=== PATIENT | female | born 2000 | race African-American/Black ===

== ENCOUNTER 2019-01-23 03:18 | Inpatient (IN) ==
[2019-01-23] MEDS ORDERED: LR 1,000 ML IV SCH ×2 (04:45→07:00)
[2019-01-23 04:59] LABS: URINE SOURCE VOIDED
[2019-01-23 05:20] LABS: BILIRUBIN URINE NEGATIVE (NEGATIVE); BLOOD URINE NEGATIVE (NEGATIVE); GLUCOSE URINE NEGATIVE (NEGATIVE); KETONE URINE NEGATIVE (NEGATIVE); LEUKOCYTES URINE 2+ (NEGATIVE); NITRITE URINE NEGATIVE (NEGATIVE); PH URINE 6.5; PROTEIN URINE NEGATIVE (NEGATIVE); SP GRAVITY URINE 1.005; UR AMPHETAMINES QUAL NONE DETECTED (NONE DETECT); UR BARBITUATES QUAL NONE DETECTED (NONE DETECT); UR BENZODIAZEPIN QUAL NONE DETECTED (NONE DETECT); UR CANNABINOIDS QUAL NONE DETECTED (NONE DETECT); UR COCAINE QUAL NONE DETECTED (NONE DETECT); UR METHADONE QUAL NONE DETECTED (NONE DETECT); UR METHAMPHETAMINE QUAL NONE DETECTED (NONE DETECT); UR OPIATES QUAL NONE DETECTED (NONE DETECT); UR OXYCODONE QUAL NONE DETECTED (NONE DETECT); UR PCP QUAL NONE DETECTED (NONE DETECT); UR PROPOXYPHENE QUAL NONE DETECTED (NONE DETECT); UR TCA QUAL NONE DETECTED (NONE DETECT); UROBILINOGEN URINE 1 mg/dL
[2019-01-23 05:21] LABS: BASO# 0.04 X1000 (0.0-0.2); BASO% 0.3 % (0.0-0.8); CLARITY CLEAR (CLEAR); COLOR YELLOW; EOS# 0.14 X1000 (0.0-0.7); EOS% 0.9 % (0.0-10.0); HEMATOCRIT 28.2 % (37.0-47.0); IMM GRAN# 0.09 X1000 (0.0-0.04); IMM GRAN% 0.6 % (0.0-0.5); LYMPH# 2.24 X1000 (1.2-3.4); LYMPH% 14.9 % (20.5-51.1); MCH 17.9 PG (27-31); MCHC 28.4 g/dL (33-37); MCV 63.1 FL (81-99); MONO# 1.17 X1000 (0.11-0.59); MONO% 7.8 % (1.7-9.3); MPV 10.4 FL (7.4-10.4); NEUT# 11.34 X1000 (1.4-6.5); NEUT% 75.5 % (42.2-75.2); PLT 330 X1000 (130-400); RBC 4.47 XMIL (4.2-5.4); RDW 19.9 % (11.5-14.5); WBC 15.02 X1000 (4.8-10.8)
[2019-01-23 05:47] LABS: RPR NON-REACTIVE (NONREACTIVE)
[2019-01-23 05:50] LABS: RAPID HIV PRESUMPTIVE NEGATIVE
[2019-01-23 06:02] LABS: SEGS 82 % (42-75)
[2019-01-23 06:03] LABS: ANISOCYTOSIS 1+; HYPOCHROM 1+; LARGE PLATELETS 1+; LYMPHS 15 % (21-51); MICROCYTOSIS 2+; MONO 3 % (1-9)
[2019-01-23] MEDS ORDERED: FENTANYL-BUPIV-NS 2 MCG-0.1% 250 ML EPIDURAL PRN (06:26)
[2019-01-23] MEDS ORDERED: MARCAINE 0.25% PF INJ ONE (06:30)
[2019-01-23] MEDS ORDERED: AMPICILLIN 2 GM/NS 2 GM/100 ML IVPB IV ONE (06:57)
[2019-01-23] MEDS ORDERED: STADOL IV PRN (06:57)
[2019-01-23] MEDS ORDERED: LR 500 ML IV ONE (06:57)
[2019-01-23] MEDS ORDERED: KEFZOL 1 GM/D5W 1 GM/50 ML IVPB IV PRN (06:57)
[2019-01-23] MEDS ORDERED: REGLAN PO ONE (06:57)
[2019-01-23] MEDS ORDERED: PEPCID IV PRN (06:57)
[2019-01-23] MEDS ORDERED: PEPCID PO PRN (06:57)
[2019-01-23] MEDS ORDERED: ZOFRAN IV PRN (06:57)
[2019-01-23] MEDS ORDERED: PEPCID PO ONE (06:57)
[2019-01-23] MEDS ORDERED: TYLENOL PO PRN (06:57)
[2019-01-23] MEDS ORDERED: SODIUM CHLORIDE 0.9% INJ SCH (07:00)
[2019-01-23] MEDS ORDERED: PITOCIN 30 UNITS/NS 30 UNIT/500 ML IV.SOLN IV SCH (07:00)
--- NOTE | 2019-01-23 07:45 | HISTORY AND PHYSICAL ---
HISTORY OF PRESENT ILLNESS: The patient is a 18-year-old G2, P1, 0-0-1 at unknown gestational age, who presents to Labor and Delivery in active labor. The patient reports receiving care in [place], however, patient unable to report OB physician or hospital where she received care. Reports good movement. Admits to contractions. Denies leakage of fluid or vaginal bleeding. Denies any complications with current or previous . PAST MEDICAL HISTORY: Anemia. PAST SURGICAL HISTORY: None. MEDICATIONS: vitamins. 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 Menarche at age 11. OBSTETRICAL HISTORY: G2, P1, 0-0-1. One full-term vaginal delivery. No complications. ALLERGIES: No known drug allergies. FAMILY HISTORY: Noncontributory. SOCIAL HISTORY: Denies tobacco, alcohol, or drug use. PHYSICAL EXAMINATION: VITAL SIGNS: Temperature 97.8 degrees, pulse rate 100, respiration rate 18, blood pressure 124/80, and O2 saturation is 100% on room air. Weight 128 pounds, height 5 feet 2 inches, and BMI 23.4 kg/m2. GENERAL: No acute distress. Alert, awake, and oriented x3. CARDIOVASCULAR: Regular rate and rhythm. RESPIRATORY: Clear to auscultation. ABDOMEN: Gravid. Nontender to palpation. EXTREMITIES: No calf tenderness. Electronic monitoring category 1 tracing. Tocometer every 5 minutes. Sterile vaginal exam. 4 cm dilated, 70% effaced, and -2 station. LABORATORIES: WBCs 15.02, hemoglobin 8, hematocrit 28.2, and platelets 330,000. Urine drug screen negative. RPR nonreactive. HIV negative. Rubella pending. ASSESSMENT: Ms. Bartlett is a 18-year-old G2, P1, 0-0-1 at unknown gestational age, presumed term who presents in active labor. PLAN: 1. Admit to Labor and Delivery. 2. Obtain ultrasound for dating. 3. Continuous monitoring. 4. IV pain medications or epidural p.r.n. 5. Estimated weight 6-1/2 pounds. 6. Anticipate spontaneous vaginal delivery. [facility]
[2019-01-23] MEDS ORDERED: MINERAL OIL TOP PRN (07:46)
[2019-01-23] MEDS ORDERED: XYLOCAINE-MPF 1% INJ PRN (07:49)
[2019-01-23] MEDS ORDERED: AMPICILLIN 1 GM/NS 1 GM/50 ML IVPB IV SCH (10:58)
--- NOTE | 2019-01-23 11:58 | OB/GYN PROGRESS NOTE ---
Progress Note OB - . Patient Problems: Current Active Problems Problem Status Onset Intrauterine Acute OB Progress Note: Vital Signs - 24 hr 01/23/19 03:40 01/23/19 09:07 Temperature 97.8 F 96.9 F L Pulse Rate 100 H 95 H Respiratory Rate 18 16 Blood Pressure 124/80 104/51 O2 Sat by Pulse Oximetry 100 100 Laboratory Results - last 24 hr 01/23/19 01/23/19 01/23/19 04:26 04:26 04:26 WBC RBC Hgb Hct MCV MCH MCHC RDW Std Deviation Plt Count MPV Immature Gran % (Auto) Neut % (Auto) Lymph % (Auto) [place] % (Auto) Eos % (Auto) Baso % (Auto) Immature Gran # (Auto) Neut # (Auto) Lymph # (Auto) [place] # (Auto) Eos # (Auto) Baso # (Auto) Segmented Neutrophils Lymphocytes Monocytes Hypochromia Large Platelets Anisocytosis Microcytosis Glucose 79 Urine Source VOIDED Urine Color YELLOW Urine Clarity CLEAR Urine pH 6.5 Ur Specific [place] 1.005 Urine Protein NEGATIVE Urine Ketones NEGATIVE Urine Blood NEGATIVE Urine Nitrite NEGATIVE Urine Bilirubin NEGATIVE Urine Urobilinogen 1 Urine WBC 2+ A Urine Glucose NEGATIVE Urine Opiates Screen NONE DETECTED Ur Oxycodone Screen NONE DETECTED Urine Methadone Screen NONE DETECTED U Propoxyphene Qual NONE DETECTED Ur Barbituates Screen NONE DETECTED Ur Tricyclics Screen NONE DETECTED Ur Phencyclidine Scrn NONE DETECTED Ur Amphetamines Screen NONE DETECTED U Methamphetamines Scrn NONE DETECTED U Benzodiazepines Scrn NONE DETECTED Urine Cocaine Screen NONE DETECTED U Cannabinoids Screen NONE DETECTED RPR HIV 1&2 Antibody Rapid Blood Type Antibody Screen 01/23/19 01/23/19 01/23/19 04:26 04:26 04:26 WBC 15.02 H RBC 4.47 Hgb 8.0 L Hct 28.2 L MCV 63.1 L MCH 17.9 L MCHC 28.4 L RDW Std Deviation 19.9 H Plt Count 330 MPV 10.4 Immature Gran % (Auto) 0.6 H Neut % (Auto) 75.5 H Lymph % (Auto) 14.9 L [place] % (Auto) 7.8 Eos % (Auto) 0.9 Baso % (Auto) 0.3 Immature Gran # (Auto) 0.09 H Neut # (Auto) 11.34 H Lymph # (Auto) 2.24 [place] # (Auto) 1.17 H Eos # (Auto) 0.14 Baso # (Auto) 0.04 Segmented Neutrophils 82 H Lymphocytes 15 L Monocytes 3 Hypochromia 1+ Large Platelets 1+ Anisocytosis 1+ Microcytosis 2+ Glucose Urine Source Urine Color Urine Clarity Urine pH Ur Specific [place] Urine Protein Urine Ketones Urine Blood Urine Nitrite Urine Bilirubin Urine Urobilinogen Urine WBC Urine Glucose Urine Opiates Screen Ur Oxycodone Screen Urine Methadone Screen U Propoxyphene Qual Ur Barbituates Screen Ur Tricyclics Screen Ur Phencyclidine Scrn Ur Amphetamines Screen U Methamphetamines Scrn U Benzodiazepines Scrn Urine Cocaine Screen U Cannabinoids Screen RPR NON-REACTIVE HIV 1&2 Antibody Rapid PRESUMPTIVE NEGATIVE Blood Type AB POSITIVE Antibody Screen NEGATIVE of a living female infant over an intact perineum. Placenta delivered spontaneous intact. Epidural Third degree perineal laceration repaired in layers with 2-0 and 3-0 chromic. Rectum is intact. EML 350ml 9-10 Wt: 6lb 13 oz Pt tolerated procedure well.
[2019-01-23] MEDS ORDERED: PITOCIN 20 UNITS/NS 20 UNITS/1,000 ML IV.SOLN ONE (12:46)
[2019-01-23] MEDS ORDERED: PITOCIN 20 UNITS/NS 20 UNITS/1,000 ML IV.SOLN IV SCH (13:00)
[2019-01-23] MEDS ORDERED: ATARAX PO PRN (15:46)
[2019-01-23] MEDS ORDERED: AMBIEN PO PRN (15:46)
[2019-01-23] MEDS ORDERED: MOTRIN PO PRN (15:46)
[2019-01-23] MEDS ORDERED: M-M-R II VACCINE SUBQ ONE (15:46)
[2019-01-23] MEDS ORDERED: BOOSTRIX VACCINE IM ONE (15:46)
[2019-01-23] MEDS ORDERED: BENADRYL PO PRN (15:46)
[2019-01-23] MEDS ORDERED: HYDROXYZINE IM PRN (15:46)
[2019-01-23] MEDS ORDERED: CYTOTEC PO PRN (15:46)
[2019-01-23] MEDS ORDERED: NORCO-5 PO PRN (15:46)
[2019-01-23] MEDS ORDERED: BENADRYL IV PRN (15:46)
[2019-01-23] MEDS ORDERED: PERI MEDS (DERMOPLAST/NUPERCAINAL/TUCKS) MISC PRN (15:46)
[2019-01-23 18:47] LABS: HIV ANTIBODY SCREEN SEE COMMENTS
[2019-01-23 19:10] LABS: RUBELLA SCREEN NON IMMUNE (IMMUNE)
[2019-01-23] MEDS: PERICOLACE PO SCH (21:04)
[2019-01-24 08:41] LABS: BASO# 0.06 X1000 (0.0-0.2); BASO% 0.4 % (0.0-0.8); EOS# 0.12 X1000 (0.0-0.7); EOS% 0.7 % (0.0-10.0); HEMATOCRIT 23.2 % (37.0-47.0); HEMOGLOBIN 6.6 g/dL (12.0-16.0); IMM GRAN# 0.06 X1000 (0.0-0.04); IMM GRAN% 0.4 % (0.0-0.5); LYMPH# 1.63 X1000 (1.2-3.4); LYMPH% 9.6 % (20.5-51.1); MCH 18.3 PG (27-31); MCHC 28.4 g/dL (33-37); MCV 64.3 FL (81-99); MONO# 1.09 X1000 (0.11-0.59); MONO% 6.4 % (1.7-9.3); MPV 9.8 FL (7.4-10.4); NEUT# 14.02 X1000 (1.4-6.5); NEUT% 82.5 % (42.2-75.2); PLT 263 X1000 (130-400); RBC 3.61 XMIL (4.2-5.4); RDW 19.5 % (11.5-14.5); WBC 16.98 X1000 (4.8-10.8)
[2019-01-24] MEDS: FERROUS SULFATE PO SCH (08:46)
[2019-01-24 08:50] LABS: BANDS 5 % (0-1); LYMPHS 6 % (21-51); MONO 4 % (1-9); SEGS 85 % (42-75)
[2019-01-24 08:51] LABS: ANISOCYTOSIS 1+; HYPOCHROM OCCASIONAL
[2019-01-24 08:52] LABS: MICROCYTOSIS 1+; POIKILOCYTOSIS OCCASIONAL; POLYCHROM 1+
[2019-01-24 08:53] LABS: LARGE PLATELETS OCCASIONAL; OVALOCYTES OCCASIONAL; TARGET CELLS OCCASIONAL
[2019-01-24 09:46] LABS: HEPATITIS B SURFACE ANTIGEN SEE COMMENTS
[2019-01-24] MEDS: PERICOLACE PO SCH (21:05)
[2019-01-25 06:38] LABS: BASO# 0.05 X1000 (0.0-0.2); BASO% 0.3 % (0.0-0.8); HEMATOCRIT 23.4 % (37.0-47.0); HEMOGLOBIN 6.6 g/dL (12.0-16.0); IMM GRAN# 0.18 X1000 (0.0-0.04); IMM GRAN% 1.2 % (0.0-0.5); LYMPH# 2.08 X1000 (1.2-3.4); LYMPH% 13.9 % (20.5-51.1); MCH 18.2 PG (27-31); MCHC 28.2 g/dL (33-37); MCV 64.6 FL (81-99); MONO% 7.4 % (1.7-9.3); NEUT# 11.22 X1000 (1.4-6.5); NEUT% 75.2 % (42.2-75.2); PLT 295 X1000 (130-400); RBC 3.62 XMIL (4.2-5.4); RDW 19.5 % (11.5-14.5); WBC 14.93 X1000 (4.8-10.8)
[2019-01-25] MEDS ORDERED: ZITHROMAX PO ONE ×2 (07:35→10:30)
[2019-01-25] MEDS ORDERED: M-M-R II VACCINE SUBQ ONE (07:36)
[2019-01-25] MEDS ORDERED: DEPO-PROVERA IM ONE (07:44)
--- NOTE | 2019-01-25 07:44 | OB/GYN PROGRESS NOTE ---
Progress Note OB - . Patient Problems: Current Active Problems Problem Status Onset Intrauterine Acute OB Progress Note: Vital Signs - 24 hr 01/24/19 07:48 01/24/19 16:34 01/24/19 21:05 Temperature 97 F L 97.1 F L 97.8 F Pulse Rate 89 87 104 H Respiratory Rate 20 16 18 Blood Pressure 117/72 110/55 114/55 O2 Sat by Pulse Oximetry 100 100 01/25/19 06:00 Temperature 96.6 F L Pulse Rate 74 Respiratory Rate 18 Blood Pressure 119/76 O2 Sat by Pulse Oximetry 100 Laboratory Results - last 24 hr 01/23/19 01/23/19 01/24/19 04:26 04:26 08:20 WBC 16.98 H RBC 3.61 L Hgb 6.6 L D Hct 23.2 L MCV 64.3 L MCH 18.3 L MCHC 28.4 L RDW Std Deviation 19.5 H Plt Count 263 MPV 9.8 Immature Gran % (Auto) 0.4 Neut % (Auto) 82.5 H Lymph % (Auto) 9.6 L [place] % (Auto) 6.4 Eos % (Auto) 0.7 Baso % (Auto) 0.4 Immature Gran # (Auto) 0.06 H Neut # (Auto) 14.02 H Lymph # (Auto) 1.63 [place] # (Auto) 1.09 H Eos # (Auto) 0.12 Baso # (Auto) 0.06 Segmented Neutrophils 85 H Band Neutrophils 5 H Lymphocytes 6 L Monocytes 4 Hypochromia OCCASIONAL Large Platelets OCCASIONAL Polychromasia 1+ Poikilocytosis OCCASIONAL Anisocytosis 1+ Microcytosis 1+ Target Cells OCCASIONAL Ovalocytes OCCASIONAL Ur Chlamydia/GC DNA SEE COMMENTS Hep Bs Antigen SEE COMMENTS 01/25/19 06:21 WBC 14.93 H RBC 3.62 L Hgb 6.6 L Hct 23.4 L MCV 64.6 L MCH 18.2 L MCHC 28.2 L RDW Std Deviation 19.5 H Plt Count 295 MPV 10.0 Immature Gran % (Auto) 1.2 H Neut % (Auto) 75.2 Lymph % (Auto) 13.9 L [place] % (Auto) 7.4 Eos % (Auto) 2.0 Baso % (Auto) 0.3 Immature Gran # (Auto) 0.18 H Neut # (Auto) 11.22 H Lymph # (Auto) 2.08 [place] # (Auto) 1.10 H Eos # (Auto) 0.30 Baso # (Auto) 0.05 Segmented Neutrophils Not Reportable Band Neutrophils Lymphocytes Monocytes Hypochromia Large Platelets Polychromasia Poikilocytosis Anisocytosis Microcytosis Target Cells Ovalocytes Ur Chlamydia/GC DNA Hep Bs Antigen 18 yo PPD#2 s/p with no care, RNI, Chlamydia positive, anemia Patient seen and examined. No complaints this AM, pain controlled. Hgb this AM was 6.6, unchanged from yesterday. She denies any dizziness/lightheaded with ambulation. She notes minimal lochia. She is voiding without difficulty. Discussed positive chlamydia testing this AM. Will treat patient with Azithromycin and recommended partner treatment through the health department. Advised to avoid intercourse x 6 weeks. Nursery notified. She desires depo- provera prior to discharge for PP contraception. Encouraged patient to follow-up with us in clinic. Physical Exam-General - PHYSICAL EXAM-ADULT Initial Vital Signs Reviewed: Yes - CONSTITUTIONAL General Appearance: appears well, alert, no apparent distress - EYES Eyes: PERRL/EOMI - HEAD, EARS, NOSE, MOUTH & THROAT HENMT: normocephalic/atraumatic - RESPIRATORY Respiratory: lungs clear, normal breath sounds, no respiratory distress - CARDIOVASCULAR Cardiovascular: normal peripheral pulses, regular rate, rhythm - GASTROINTESTINAL (ABDOMEN) Abdominal Exam: normal bowel sounds, non tender, soft (fundus firm, below umbilicus) - MUSCULOSKELETAL Extremity: normal range of motion, non-tender - PSYCHIATRIC Psych/Mental Status: other (flat affect) Assessment/Plan - Assessment/Plan Assessment: 18 yo PPD#2 s/p with no PNC, RNI, anemia, Chlamydia positive 1. HD stable, Hgb 6.6, patient asymptomatic/VSS 2. Treat Chlamydia with Azith 1g PO x 1. Recommended partner treatment through health department. Nursery notified. 3. MMR vaccine prior to discharge 4. Depo-provera for PP contraception prior to discharge 5. Recommended follow-up with OBGYN for post- visit 6. SS consult for no PNC
[2019-01-25 08:23] VITALS: BP 114/75
[2019-01-25] MEDS: FERROUS SULFATE PO SCH (09:37)
--- NOTE | 2019-01-25 14:56 | DISCHARGE SUMMARY ---
ADMISSION DATE: 01/23/2019 DISCHARGE DATE: 01/25/2019 CONDITION ON DISCHARGE: Stable. FINAL DIAGNOSIS: 1. A 18-year-old, G2, P2 002, day. 2. Status post spontaneous vaginal delivery. 3. No care. 4. Anemia. 5. Chlamydia infection. 6. Rubella nonimmune. PROCEDURES: Spontaneous vaginal delivery on 01/23. HISTORY OF PRESENT STAY: The patient is a 18-year-old G2, P1, 001 with no care who presented to labor and delivery in active labor. She underwent a spontaneous vaginal delivery on 01/23/2019 of a term . Hemoglobin on day #1 was 6.6. Upon admission, hemoglobin was 8. Hemoglobin was repeated on day #2 and remained 6.6. The patient was asymptomatic and denied any dizziness or lightheadedness with walking or standing. She was started on iron sulfate p.o. b.i.d. for anemia. While inpatient, she had a routine course. labs were ordered which revealed rubella nonimmune status and positive Chlamydia infection. She is treated with azithromycin p.o. 1 g p.o. x1 for the chlamydia infection. It was recommended that her partner also be treated through the health department and to avoid intercourse for 6 weeks . She received a MMR vaccine for her rubella nonimmune status. She also received Depo Provera injection prior to discharge for contraception. Psychology Clinician was consulted due to her lack of care during . On day #2, the patient was deemed stable for discharge. She was encouraged to follow up in clinic in 3 weeks for a visit. DISCHARGE MEDICATIONS: 1. Ferrous sulfate 325mg PO BID 2. Motrin 800mg PO Q8hrs PRN pain, disp#30 FOLLOW-UP INSTRUCTIONS: Notify doctor with temperature greater than 100.4 degrees Fahrenheit, heavy vaginal bleeding greater than 1 pad an hour, foul-smelling discharge, or severe pain. Place nothing in the vagina for her 6 weeks, no tampons, douching, or sex. FOLLOW UP APPOINTMENT: Patient instructed to follow up with Dr. Estrada in 3 weeks for a visit. cc: Car Stallworth MD MTDD
== END 2019-01-25 14:55 | disposition home or self-care (01) | DRG 768 ==
LOC: P.OPLD 03:18 → P.LD 03:24
PROVIDERS: ADMIT Obstetrics & Gynecology; ATTEND Obstetrics & Gynecology